=== PATIENT | male | born 1990 | race Caucasian/White ===

== ENCOUNTER 2024-05-11 21:17 | Emergency (ER) | payer SELFPAY ==
[2024-05-11 21:19] VITALS: BP 168/101
--- NOTE | 2024-05-12 00:21 | ED.SKININJ ---
HPI-Injury
General
Chief Complaint: Skin Surface Trauma
Source: patient
Exam Limitations: none
Time Seen by Provider: 05/12/24 00:04
Nursing documentation reviewed up to this point in time: agreed with
History of Present Illness-Injury
Initial Injury comments:
33-year-old male presents with right first finger laceration. He was washing dishes at the [employer] when a glass broke lacerating his finger. He states that there is 'no chance that there is glass in his finger '. The glass broke
and pretty large shards and he does not feel that that is. He was unable to get the bleeding controlled. He applied direct pressure but every time he removed it the bleeding would resume. He is not on any blood thinners.
Phy Exam
General Physical Exam
General Presentation: well appearing and mild distress
General Habitus: normal
Pulmonary Exam
Pulmonary Exam: no respiratory distress
Neurological Exam
Neurological Exam: alert and oriented x3
Musculoskeletal Exam
Musculoskeletal Exam: full ROM
Skin Exam
Skin Exam: laceration
Psychiatric Exam
Psychiatric Exam: normal mood/affect
Course
Orders/Labs/Results
Orders:
Orders
05/12/24 00:12
Hand, Right 3 View [CR Hand - Right Min 3 Views] Urgent
Comment:
Reason For Exam: possible fb
05/12/24 00:22
Tetanus/Diphth/Acelpertussis [Adacel] 0.5 ml IM .ONCE ONE
Vital Signs
Initial and Last Documented VS:
Initial Vital Signs
Temp Pulse Resp BP Pulse Ox
97.8 F 122 18 168/101 99
05/11/24 21:19 05/11/24 21:19 05/11/24 21:19 05/11/24 21:19 05/11/24 21:19
Last Documented Vital Signs
Temp Pulse Resp BP Pulse Ox
97.8 F 122 18 168/101 99
05/11/24 21:19 05/11/24 21:19 05/11/24 21:19 05/11/24 21:19 05/11/24 21:19
Procedures
Laceration Closure
Right First Finger:
Status of Wound: clean
Size of Wound in cm: 5
Description of Wound Edges: ragged and flap-well vascularized
Preparation: cleaned with soap & water
Anesthesia: 1% Lidocaine
Revision/Debridement: routine- no revision
Wound exploration: explored to base- no FB
Type of Closure: single layer closure
Skin Closure Material: 5-0 nylon
Number of sutures: 6
Additional information:
Tetanus was last administered approximately 2 weeks
*Critical Care Note
Total Time (30-74mins, 75-104mins- exclusive of procedures): Not Applicable
ED Attending Note
-
Portions of this chart may have been created with voice recognition software.� Occasional wrong word or��sound alike� substitutions may have occurred due to the inherent limitations of voice recognition software.
Discharge Plan
Departure
Patient Disposition: Home (Routine Discharge)
Date of Disposition: 05/12/24
Time of Disposition: 00:54
Patient with high blood pressure during this ER visit?: Yes
Discharge Problem:
Finger laceration
Instructions: Wound Care (DC), Laceration Repair With Stitches (DC)
Referrals:
Anselmo Moya [Family Provider] -
Activity Restrictions/Additional Instructions:
Sutures can be removed in 5 to 7 days. Keep wound clean and dry
It was a pleasure meeting you and taking part in your care. We hope for your continued healing and wellness.
Please read discharge instructions in their entirety. However, they are for general education and may not describe your exact diagnosis at discharge. Information on your ER visit and medical conditions were discussed with you along with appropriate
follow up information...
If indicated, please take your medications as instructed and indicated on discharge paperwork.
Please schedule a follow up appointment as directed. Call to schedule an appointment
Please return to the emergency department with ANY change in, persisting, or worsening of symptoms. If any of your symptoms do not improve, or persist, or become more severe within 6-12 hours, please return to the emergency department for further
care.
Please return to the emergency department if you develop a headache, neck pain/stiffness, fever greater than 100.4F, chest pain, shortness of breath, persistent nausea, vomiting, slurred speech, difficulty walking, numbness/tingling, weakness, signs
of infection or any other symptoms that are worrisome to you.
If you have any questions or concerns please do not hesitate to call the Hospital at or E-mail me directly at [email or web address]
Interventions
Interventions:
*Risk Screen - Suicide Last Done: 05/11/24 21:19
*General Assessment Last Done: 05/11/24 21:19
*Neglect/Abuse Screening Last Done: 05/11/24 21:19
*ED COVID-19 Vaccine History Last Done: 05/11/24 21:19
*Nursing Disposition Last Done: 05/12/24 01:07
Discharge Date and Time
Discharge Date/Time: 05/12/24 01:08
Print Language: CZECH
== END 2024-05-12 01:08 | disposition home or self-care (01) ==
LOC: EMR 21:17
PROVIDERS: EMERGENCY PHYSICIAN Student in an Organized Health Care Education/Training Program; FAMILY PHYSICIAN Psychologist
DX: S61.011A Laceration without foreign body of right thumb without damage to nail, initial encounter (principal); W25.XXXA Contact with sharp glass, initial encounter
CPT/HCPCS: 12002; 99283; 73130

== ENCOUNTER 2025-01-08 14:32 | Emergency (ER) | payer SELFPAY ==
[2025-01-08 14:41] VITALS: BP 157/97
[2025-01-08 15:06] LABS: Hematocrit 46.1 % (39.0-52.0); Hemoglobin 15.5 g/dL (13.0-18.0); Mean Corp Hgb Conc. 33.6 g/dL (33.0-37.0); Mean Corpuscular Volume 86.2 fL (80.0-94.0); Nucleated Red Blood Cells % 0 % (-); Platelet Count 267 10^3/uL (130-400); Red Cell Dist. Width 12.9 % (11.5-14.5)
[2025-01-08 15:20] LABS: ALT (SGPT) 89 U/L (0-50); AST (SGOT) 42 U/L (17-59); Albumin 4.6 g/dl (3.5-5.0); Alkaline Phosphatase 86 U/L (38-126); Blood Urea Nitrogen 19 mg/dl (9-20); Calcium 9.5 mg/dl (8.4-10.2); Carbon Dioxide 24 mmol/L (22-30); Chloride 105 mmol/L (98-107); Glucose 139 mg/dl (70-99); Potassium 3.5 mmol/L (3.5-5.1); Sodium 137 mmol/L (135-145); Total Protein 7.5 g/dl (6.3-8.2); eGFR > 60.00
[2025-01-08] MEDS: DECADRON 10 MG IV (16:28)
[2025-01-08] MEDS: DUONEB 3 ML INH (16:28)
[2025-01-08 17:10] VITALS: BP 134/79
--- NOTE | 2025-01-08 18:14 | ED.GENMED ---
History of Present Illness
General
Chief Complaint: Breathing Problem
Source: patient
Exam Limitations: none
Time Seen by Provider: 01/08/25 15:48
Nursing documentation reviewed up to this point in time: agreed with
History of Present Illness
History of Present Illness:
34-year-old male presenting to the emergency department today with concerns of ongoing cough and wheeze over the past few days. Has been on steroids antibiotics and nebulizer treatments without relief over the past 4 days or so. Symptoms ongoing
over the past week after what seems to be a viral syndrome.
Review of Systems
Review of Systems
Allergies reviewed?: Yes
All Other Systems: ROS reviewed and negative except as documented in HPI and ROS
Phy Exam
Physical Exam
Physical Exam:
GENERAL: Alert , in no apparent distress
EYE: pupils equal and reactive
NECK: Supple, no significant adenopathy.
ENT: o/p clr, mmm.
CARDIAC: Regular rate and rhythm .
LUNGS: Diffuse expiratory wheezing
ABDOMEN: Soft, without focal tenderness, no r/g, no cvat
NEUROLOGICAL: Alert and oriented, no focal neuro deficits
SKIN: Warm and dry, skin intact.
MUSCULOSKELETAL: No edema, well perfused.
PSYCH: Normal and appropriate interaction.
Course
Orders/Labs/Results
Orders:
Orders
01/08/25 14:44
CR Chest - 2 Views Urgent
Comment:
Reason For Exam: cough
01/08/25 14:48
Complete Blood Count/With Diff Urgent
Comprehensive Metabolic Panel Urgent
01/08/25 16:14
Dexamethasone Sod Phosphate [Decadron] 10 mg IV NOW STA
Ipratropium/Albuterol Sulfate [Duoneb] 3 ml INH R NOW ONE
Abnormal Lab Results
01/08/25
14:48
WBC 11.5 H 10^3/uL
(4.8-10.8)
Abs Immat Gran (auto) 0.1 H 10^3/uL
(0-0.05)
Absolute Neuts (auto) 7.6 H 10^3/uL
(1.4-6.5)
Immature Gran % 1.1 H %
(0-0.5)
Glucose 139 H mg/dl
(70-99)
ALT 89 H U/L
(0-50)
01/08/25 14:48
01/08/25 14:48
Vital Signs
Initial and Last Documented VS:
Initial Vital Signs
Temp Pulse Resp BP Pulse Ox
98.2 F 107 24 157/97 96
01/08/25 14:41 01/08/25 14:41 01/08/25 14:41 01/08/25 14:41 01/08/25 14:41
Last Documented Vital Signs
Temp Pulse Resp BP Pulse Ox
97.2 F 79 18 134/79 98
01/08/25 17:10 01/08/25 17:10 01/08/25 17:10 01/08/25 17:10 01/08/25 18:16
MDM/Problems Addressed
MDM/Problems Addressed:
34-year-old male presenting to the emergency department today with concerns of ongoing cough wheeze. Has been treated as an outpatient over the past 4 days or so without specific improvement. On arrival here initially tachycardic but improving
without specific treatment. Does have diffuse expiratory wheezing slight white count that likely secondary to his steroid use. Chest x-ray without evidence of pneumonia. Patient given IV dose of steroid and DuoNeb here with improvement. He was
walked in the department with pulse ox staying in the 90s. Patient feeling better throughout ER course. Stable for discharge with steroid taper and close outpatient follow-up. Return precautions given.
*Pulse Oximetry
SaO2: 98
Oxygen Mode of Delivery: Room air
Patient hypoxic: no (98)
*Critical Care Note
Total Time (30-74mins, 75-104mins- exclusive of procedures): Not Applicable
ED Attending Note
-
Portions of this chart may have been created with voice recognition software.� Occasional wrong word or��sound alike� substitutions may have occurred due to the inherent limitations of voice recognition software.
Discharge Plan
Departure
Patient Disposition: Home (Routine Discharge)
Date of Disposition: 01/08/25
Time of Disposition: 18:22
Patient with high blood pressure during this ER visit?: No
Condition: Good
Covid-19: Not Applicable
Discharge Problem:
Reactive airway disease
Instructions: Asthma, Adult (DC)
Prescriptions:
New
budesonide-formoterol [Symbicort] 160-4.5 mcg/actuation HFA aerosol inhaler
2 puff inhalation BID Qty: 10.2 0RF
prednisone 10 mg Tablet
10 mg PO DIRECTED Qty: 26 0RF
Rx Instructions:
6 tabs day 1-2, 4 tabs day 3-4, 2 tabs day 5-6, 1 tab day 7-8
Referrals:
Brian Haque Jr., DO [Family Provider, Emergency]
Activity Restrictions/Additional Instructions:
You came to the emergency department today with concerns of ongoing cough and wheeze. Please use the prescribed inhaler and steroid. Please use the albuterol as needed with decreasing need over the next few days. Please feel close with a primary
care doctor. Return for any worsening, new or concerning symptoms.
Interventions
Interventions:
*General Assessment Last Done: 01/08/25 14:41
ED- Cardiac Assessment Last Done: 01/08/25 15:32
ED- Pulmonary Assessment Last Done: 01/08/25 15:32
Discharge Date and Time
Print Language: TRISTANIAN
== END 2025-01-08 18:30 | disposition home or self-care (01) ==
LOC: EMR 14:32
PROVIDERS: Student in an Organized Health Care Education/Training Program; EMERGENCY PHYSICIAN Emergency Medicine; FAMILY PHYSICIAN Emergency Medicine
DX: J45.909 Unspecified asthma, uncomplicated (principal)
CPT/HCPCS: 94640; 96374; 99284; 71046; 80053; 85025

== ENCOUNTER 2025-01-22 23:07 | Emergency (ER) | payer SELFPAY ==
[2025-01-22 23:09] VITALS: BP 158/110
[2025-01-22 23:33] VITALS: BP 152/88
[2025-01-23] VITALS: BP 138/69
--- NOTE | 2025-01-23 00:02 | ED.GENMED ---
History of Present Illness
<Dennise Javed PA-C - Last Filed: 01/23/25 09:36>
General
Chief Complaint: Breathing Problem
Source: patient
Exam Limitations: none
Time Seen by Provider: 01/22/25 23:31
Nursing documentation reviewed up to this point in time: agreed with
History of Present Illness
History of Present Illness:
A 34-year old male with no pmh presents with acute chest discomfort following a notable 'pop' sensation in the chest region. This sensation occurred when the patient experienced a severe coughing spell approximately a few hours before ER visit. The
patient describes the sensation as similar to that of a 'back pop' either in the neck or back area, reporting significant and persistent discomfort thereafter.
The patient has a recent history of respiratory issues and was diagnosed with bronchitis at an urgent care facility. They were prescribed a course of prednisone that initially began at 40 mg, increasing to 60 mg, alongside using an albuterol inhaler
and another steroid inhaler to manage symptoms. Despite these interventions, the patient noted a recurrence of symptoms such as wheezing and a productive cough approximately one week after completing the prednisone course.
The patient reported the return of these respiratory symptoms about 24 hours prior to this visit. The pain is what prompted the visit today.
Review of Systems
<Dennise Javed PA-C - Last Filed: 01/23/25 09:36>
Review of Systems
All Other Systems: ROS reviewed and negative except as documented in HPI and ROS
Phy Exam
<Dennise Javed PA-C - Last Filed: 01/23/25 09:36>
General Physical Exam
General Presentation: well appearing and no apparent distress
General age: appears stated age
General Skin: warm and dry
General Habitus: normal
General Mental: alert
General Hydration: appears well hydrated
ENT Exam
ENT Exam: pharynx normal
Cardiovascular Exam
Cardiovascular Exam: regular rate/rhythm (no tenderness to external chest wall, no palpable crepitus)
Pulmonary Exam
Pulmonary Exam: no respiratory distress (occasional end expiratory wheezes in upper lung garay )
Neurological Exam
Neurological Exam: alert, oriented x3 and CN II-XII intact
Musculoskeletal Exam
Musculoskeletal Exam: other (tenderness noted over the left external chest wall, pain worse with movement)
Skin Exam
Skin Exam: normal color and warm/dry
Psychiatric Exam
Psychiatric Exam: normal mood/affect
Course
<Dennise Javed PA-C - Last Filed: 01/23/25 09:36>
Orders/Labs/Results
Orders:
Orders
01/23/25 00:00
CR Chest - 2 Views Urgent
Comment:
Reason For Exam: left chest pain, shortness of breath
01/23/25 00:01
Electrocardiogram (*1) Urgent
Reason for Study: Chest Pain
Ketorolac [Toradol] 15 mg IV NOW STA
01/23/25 00:16
Basic Metabolic Panel Urgent
Comment: NO K
Complete Blood Count/With Diff Urgent
01/23/25 01:25
Ipratropium/Albuterol Sulfate [Duoneb] 3 ml INH R NOW STA
01/23/25 01:33
Rx Incentive Spirometry [RESP] Urgent
Frequency: q1h while awake
Abnormal Lab Results
01/23/25
00:16
BUN 23 H mg/dl
(9-20)
Glucose 105 H mg/dl
(70-99)
01/23/25 00:16
01/23/25 00:16
Vital Signs
Initial and Last Documented VS:
Initial Vital Signs
Temp Pulse Resp BP Pulse Ox
98.9 F 106 28 158/110 97
01/22/25 23:09 01/22/25 23:09 01/22/25 23:09 01/22/25 23:09 01/22/25 23:09
Last Documented Vital Signs
Temp Pulse Resp BP Pulse Ox
98.2 F 81 16 131/77 98
01/23/25 02:31 01/23/25 02:31 01/23/25 02:31 01/23/25 02:31 01/23/25 02:31
<Andrea James DO - Last Filed: 01/23/25 01:27>
Orders/Labs/Results
Orders:
Orders
01/23/25 00:00
CR Chest - 2 Views Urgent
Comment:
Reason For Exam: left chest pain, shortness of breath
01/23/25 00:01
Electrocardiogram (*1) Urgent
Reason for Study: Chest Pain
Ketorolac [Toradol] 15 mg IV NOW STA
01/23/25 00:16
Basic Metabolic Panel Urgent
Comment: NO K
Complete Blood Count/With Diff Urgent
01/23/25 01:25
Ipratropium/Albuterol Sulfate [Duoneb] 3 ml INH R NOW STA
01/23/25 01:33
Rx Incentive Spirometry [RESP] Urgent
Frequency: q1h while awake
Abnormal Lab Results
01/23/25
00:16
BUN 23 H mg/dl
(9-20)
Glucose 105 H mg/dl
(70-99)
01/23/25 00:16
01/23/25 00:16
Vital Signs
Initial and Last Documented VS:
Initial Vital Signs
Temp Pulse Resp BP Pulse Ox
98.9 F 106 28 158/110 97
01/22/25 23:09 01/22/25 23:09 01/22/25 23:09 01/22/25 23:09 01/22/25 23:09
Last Documented Vital Signs
Temp Pulse Resp BP Pulse Ox
98.2 F 81 16 131/77 98
01/23/25 02:31 01/23/25 02:31 01/23/25 02:31 01/23/25 02:31 01/23/25 02:31
<Dennise Javed PA-C - Last Filed: 01/23/25 09:36>
MDM/Problems Addressed
Differential Diagnosis Includes:
The Differential Diagnosis includes, in no particular order and is not limited to:
- Pneumothorax
- Muscle strain or intercostal muscle tear
- Asthmatic bronchitis recurrence
- Costochondritis
- Pleuritis
- Respiratory tract infection
- Pulmonary embolism
- Atelectasis
- Esophageal spasm or rupture
- Rib fracture.
MDM/Problems Addressed:
PLAN:
- Conduct a chest X-ray to evaluate for possible pneumothorax or other structural injury due to severe coughing.
- Assess and manage respiratory symptoms.
- Monitor oxygen saturation and vital signs.
- Should imaging be normal, evaluate for potential pleuritis and manage inflammation appropriately.

CXR no evidence of pneumothorax
Pain worse with movement and to palpation
Examines like intercostal muscle strain
Discussed NSAIDs
Considering chronic cough and persistent wheezing despite steroids and duonebs discussed follow up with pulm
Will utilize incentive spirometry
Will trial antihistimines and flonase treatment for potential allergic bronchitis/rhinitis
Chronic conditions affecting care:
n/a
Acute Exacerbation and/or Progression of Chronic Illness:
non-contributory
<Dennise Javed PA-C - Last Filed: 01/23/25 09:36>
*Pulse Oximetry
SaO2: 97
Oxygen Mode of Delivery: Room air
Patient hypoxic: no
*EKG
Interpreted by ED Provider?: Yes
EKG Intrepretation Date: 01/23/25
Interpretation: normal
Comparison EKG: no comparison EKG present
Heart Rate: 87
Rate: normal
Rhythm: sinus
[place]: normal axis
Ischemia: no ischemia
*Critical Care Note
Total Time (30-74mins, 75-104mins- exclusive of procedures): Not Applicable
Data Reviewed
Review of Other/Old Records Reveals: Records (Reviewed ER physician documentation from from 01/08/25)
Source: patient and records
<Dennise Javed PA-C - Last Filed: 01/23/25 09:36>
Patient Management
Escalation/DeEscalation of care consider admission/obs:
admit not indicated
patient stable for discharge
ED Attending Note
<Dennise Javed PA-C - Last Filed: 01/23/25 09:36>
-
Portions of this chart may have been created with voice recognition software.� Occasional wrong word or��sound alike� substitutions may have occurred due to the inherent limitations of voice recognition software.
<Andrea James DO - Last Filed: 01/23/25 01:27>
ED Attending Note
Patient seen and examined by attending physician: Yes
I performed the substantive portion of visit, reviewed & personally made and approve the management plan that is documented in note by myself or SASHA.: Yes
ED Attending Note:
34-year-old male who presents with acute severe left chest pain after coughing. Clearly worse with movement and deep breathing. Chest x-ray shows no evidence of pneumothorax. Is concerned as cough is returned. I do question. At this time
recommend repeat steroids. Did recommend Flonase, daily Anya and continue albuterol as needed no indication for antibiotics okay for outpatient follow-up with incentive spirometer
Discharge Plan
Departure
Patient Disposition: Home (Routine Discharge)
Date of Disposition: 01/23/25
Time of Disposition: 02:11
Patient with high blood pressure during this ER visit?: Yes
Condition: Good
Discharge Problem:
Bronchitis, Intercostal muscle strain
Instructions: Muscle, joint, and bone pain (DC), Bronchitis in adults - ED (DC), BLOOD PRESSURE
Prescriptions:
New
fluticasone propionate [Flonase Allergy Relief] 50 mcg/actuation spray,suspension
1 spray intranasal BID Qty: 16 0RF
No Action
budesonide-formoterol [Symbicort] 160-4.5 mcg/actuation HFA aerosol inhaler
2 puff inhalation BID Qty: 10.2 0RF
prednisone 10 mg Tablet
10 mg PO DIRECTED Qty: 26 0RF
Rx Instructions:
6 tabs day 1-2, 4 tabs day 3-4, 2 tabs day 5-6, 1 tab day 7-8
Referrals:
Jared Julio MD [Active, Pulmonary Medicine] - Call in 1-3 days for appt
Shelby Vasquez MD, Resident [Family Provider, General]
Stand Alone Forms: Return to Work
Activity Restrictions/Additional Instructions:
Please start taking Claritin. Please take one 10 mg tablet once daily for 1 week.
Flonase has also been sent to your pharmacy.
Please use the incentive spirometer for 10 breaths every 1-2 hours while you are awake for the next week.
Please take ibuprofen and Tylenol as needed for pain.
PLEASE RETURN TO ER SHOULD YOU DEVELOP ACUTE WORSENING OR SYMPTOMS, INABILITY TO BREATHE, TROUBLE SWALLOWING, CENTRAL CHEST PAIN, PERSISTENT FEVERS, LIGHTHEADEDNESS, DIZZINESS, OR ANY OTHER SIGNS OR SYMPTOMS WORRISOME TO YOU.
Please call the attached number to schedule an appointment for follow-up to see a plate slitter and inspector for further evaluation.
Interventions
Interventions:
*Risk Screen - Suicide Last Done: 01/22/25 23:09
*General Assessment Last Done: 01/22/25 23:29
*Neglect/Abuse Screening Last Done: 01/22/25 23:09
*ED- Fall Risk Assessment Last Done: 01/22/25 23:29
*ED COVID-19 Vaccine History Last Done: 01/22/25 23:29
*ED Influenza Vaccine History Last Done: 01/22/25 23:29
*Nursing Disposition Last Done: 01/23/25 02:31
ED- Cardiac Assessment Last Done: 01/22/25 23:39
ED- Pulmonary Assessment Last Done: 01/22/25 23:34
Discharge Date and Time
Discharge Date/Time: 01/23/25 02:32
Print Language: MAORI
[2025-01-23] MEDS: TORADOL 15 MG IV (00:22)
[2025-01-23 00:32] LABS: Hematocrit 45.1 % (39.0-52.0); Hemoglobin 14.9 g/dL (13.0-18.0); Mean Corp Hgb Conc. 33.0 g/dL (33.0-37.0); Mean Corpuscular Volume 87.7 fL (80.0-94.0); Nucleated Red Blood Cells % 0 % (-); Platelet Count 188 10^3/uL (130-400); Red Cell Dist. Width 12.8 % (11.5-14.5)
[2025-01-23 00:58] LABS: Blood Urea Nitrogen 23 mg/dl (9-20); Calcium 9.2 mg/dl (8.4-10.2); Carbon Dioxide 23 mmol/L (22-30); Chloride 106 mmol/L (98-107); Estimated Creatinine Clearance 103 ml/min; Glucose 105 mg/dl (70-99); Sodium 139 mmol/L (135-145); eGFR > 60.00
[2025-01-23] MEDS: DUONEB 3 ML INH (01:33)
[2025-01-23 01:35] VITALS: BP 122/72
[2025-01-23 02:00] VITALS: BP 131/77
[2025-01-23 02:31] VITALS: BP 131/77
== END 2025-01-23 02:32 | disposition home or self-care (01) ==
LOC: EMR 23:07
PROVIDERS: Physician Assistant; EMERGENCY PHYSICIAN Emergency Medicine; FAMILY PHYSICIAN Student in an Organized Health Care Education/Training Program
DX: J40 Bronchitis, not specified as acute or chronic (principal); S29.011A Strain of muscle and tendon of front wall of thorax, initial encounter; X58.XXXA Exposure to other specified factors, initial encounter; R03.0 Elevated blood-pressure reading, without diagnosis of hypertension
CPT/HCPCS: 99284; 96374; 94640; 71046; 80048; 85025; 93005